=== PATIENT | male | born 1985 | race Caucasian/White ===

== ENCOUNTER 2023-06-08 19:52 | Emergency (ER) | payer OTHER, SELFPAY ==
[2023-06-08 19:54] VITALS: BP 139/98
--- NOTE | 2023-06-08 20:59 | ED.GENMED ---
History of Present Illness
General
Chief Complaint: Head Injury
Time Seen by Provider: 06/08/23 20:16
Travel History
Have you had any contact with someone who has COVID-19?: No
Do you have any symptoms of coronavirus? Fever > 100 degrees, chills, cough, shortness of breath, sore throat, loss of taste or smell, muscle aches, or headache?: No
History of Present Illness
History of Present Illness:
HPI: Patient presents due to head injury. He was working on a friend's car and was trying to loosen a wrench lost his balance and his head struck the car forcefully. Since that time has been having an ongoing headache. He has had waves of nausea.
He also reports some confusion.
EXAM:
GENERAL: Well appearing in no distress
CERVICAL SPINE: No midline c-spine tenderness with excellent AROM
HEAD: No evidence of craniofacial trauma
CHEST: No chest wall tenderness, normal heart sounds
LUNGS: Equal lung sounds, no respiratory distress
ABDOMEN: No abdominal tenderness, no peritoneal signs
EXTREMITIES: Normal active range of motion, no tenderness
NEURO: Excellent strength all extremities, appropriate mental status, normal speech/language
ED COURSE:
8:20 PM: I initially evaluated patient
NUMBER AND COMPLEXITY OF PROBLEMS ADDRESSED AT THE ENCOUNTER
� Chronic conditions affecting care: Anxiety, hypothyroid, OCD, bipolar disorder, ADHD
� Acute Exacerbation and/or Progression of Chronic Illness: This is an acute problem
� Differential Diagnosis includes: Concussion, minor head injury, intracranial hemorrhage
AMOUNT AND/OR COMPLEXITY OF DATA TO BE REVIEWED AND ANALYZED
� I performed an independent evaluation of and my interpretation is:
EKG:
CT: CAT scan of the brain shows no acute abnormality
X-rays:
Laboratory Studies:
Other:
� Review of other/old records: I reviewed blood work from 1 year ago that was unremarkable
� Clinical information was obtained by an independent historian: I spoke to the girlfriend at bedside
� Prescriptions/Medications Considered but not given:
� Further testing considered but not performed:
RISK OF COMPLICATIONS AND/OR MORBIDITY OR MORTALITY OF PATIENT MANAGEMENT
� Social determinants of health affecting care: Lives at home
� Discussion with other providers:
� Escalation of care including admission/observation vs risk of discharge considered: Favor more of a concussion however the patient has rather significant anxiety and is very concerned of a more serious etiology. He does have
ongoing headache, some confusion, and ongoing nausea. Will obtain CT for further evaluation as the mechanism of injury is somewhat concerning. CT brain negative on reassessment at 10:40 PM the patient has no new symptoms. Suspect minor concussion.
Past History
Past History
ED Past Medical History: Psychiatric
ED Past Surgical History: None
Social History
Tobacco: Smoker
Alcohol: None
Drug: None
Personal: Single
Living: other (With girlfriend)
Phy Exam
Physical Exam
Physical Exam:
See HPI
Course
Orders/Labs/Results
Orders:
Orders
06/08/23 20:22
CT Head W/o Iv Contrast Urgent
Comment:
Reason For Exam: head trauma, NICHOLSON persists, nausea, confusion
Vital Signs
Initial and Last Documented VS:
Initial Vital Signs
Temp Pulse Resp BP Pulse Ox
98.5 F 99 20 139/98 99
06/08/23 19:54 06/08/23 19:54 06/08/23 19:54 06/08/23 19:54 06/08/23 19:54
Last Documented Vital Signs
Temp Pulse Resp BP Pulse Ox
98.5 F 99 20 139/98 99
06/08/23 19:54 06/08/23 19:54 06/08/23 19:54 06/08/23 19:54 06/08/23 19:54
*Critical Care Note
Total Time (30-74mins, 75-104mins- exclusive of procedures): Not Applicable
ED Attending Note
-
Portions of this chart may have been created with voice recognition software.� Occasional wrong word or��sound alike� substitutions may have occurred due to the inherent limitations of voice recognition software.
Discharge Plan
Departure
Prescriptions:
No Action
escitalopram oxalate 5 MG tablet
5 mg PO DAILY
Referrals:
Blade Zuluaga MD [Family Provider] -
Interventions
Interventions:
*Risk Screen - Suicide Last Done: 06/08/23 19:54
*General Assessment Last Done: 06/08/23 19:54
*Neglect/Abuse Screening Last Done: 06/08/23 21:13
ED- Fall Risk Assessment Last Done: 06/08/23 21:12
ED- Neurological Assessment Last Done: 06/08/23 21:11
ED-Skin Assessment Last Done: 06/08/23 21:11
== END 2023-06-08 22:48 | disposition home or self-care (01) ==
LOC: EMR 19:52
PROVIDERS: EMERGENCY PHYSICIAN Emergency Medicine; FAMILY PHYSICIAN Family Medicine
DX: S06.0X0A Concussion without loss of consciousness, initial encounter (principal); W22.8XXA Striking against or struck by other objects, initial encounter; F17.200 Nicotine dependence, unspecified, uncomplicated; F41.9 Anxiety disorder, unspecified; F31.9 Bipolar disorder, unspecified; E03.9 Hypothyroidism, unspecified; F42.9 Obsessive-compulsive disorder, unspecified; F90.9 Attention-deficit hyperactivity disorder, unspecified type
CPT/HCPCS: 99284; 70450

== ENCOUNTER 2023-06-28 16:22 | Emergency (ER) | payer OTHER, SELFPAY ==
[2023-06-28 16:23] VITALS: BP 154/91
--- NOTE | 2023-06-28 18:45 | ED.GENMED ---
History of Present Illness
General
Chief Complaint: Swallowing Problem
Source: patient
Exam Limitations: none
Time Seen by Provider: 06/28/23 17:40
Nursing documentation reviewed up to this point in time: agreed with
Travel History
Have you had any contact with someone who has COVID-19?: No
Do you have any symptoms of coronavirus? Fever > 100 degrees, chills, cough, shortness of breath, sore throat, loss of taste or smell, muscle aches, or headache?: No
History of Present Illness
History of Present Illness:
pt is a 37 y/o M with h/o Hypothyroid
ADHD
was on meds for thyroid bu thas been euthyroid for a while
1 week sore throat, hoarseness voic,e mild occ cough, some feelings of gerd/regurgitstion of food or liquids
went to pcp and was sent here
recently had outpatient labs showing his tsh was normal but free t4 was slightly high. was told it probably was insignfiicant
pt says when he started haiving sore throat, he was wondering if maybe he had thyroiditis
he also has had chronic ROLAND posterior auricluar left ear x 5 years
in mar he saw derm. actually at the time he thought it was a cyst and it was much larger
when they cut into it, they realized it was a lymph node
it since has gone down in size but not away. it is not painful
no other lymph nodes
pt has had referral to ENT for this
today at the PCP office he had a soft tissue neck xray which was reported normal
Past History
Past History
ED Past Medical History: Psychiatric
ED Past Surgical History: None
Social History
Tobacco: Smoker
Alcohol: None
Drug: None
Personal: Single
Living: other (With girlfriend)
Review of Systems
Review of Systems
Allergies reviewed?: Yes
All Other Systems: Not applicable
Phy Exam
Physical Exam
Physical Exam:
GENERAL: Alert , in no apparent distress
TOLERATING SECRETIONS, NO REGURGITATION OF LIQUIDS
EYE: pupils equal and reactive
NECK: Supple
no anterior/posterior cerivcal ROLAND
pt has a left posterior auricular lymph node approx 1.5 cm nontender firm
ENT: o/p clr, mmm. mild erythema
mild voice hoarseness
CARDIAC: Regular rate and rhythm .
LUNGS: Clear breath sounds bilaterally, no acute respiratory distress, no wheezes/rales/rhonchi
ABDOMEN: Soft, without focal tenderness, no r/g, no cvat, normal bowel sounds
NEUROLOGICAL: Alert and oriented, no focal neuro deficits
SKIN: Warm and dry, skin intact.
MUSCULOSKELETAL: No edema, well perfused. neg sanna's sign
PSYCH: Normal and appropriate interaction.
Course
Orders/Labs/Results
Orders:
Orders
06/28/23 18:31
Mag Hydrox/Al Hydrox/Simeth [Maalox] 30 ml Phenobarb/Hyoscy/Atropine/Scop [] 10 ml PO NOW
06/28/23 18:32
CR Chest - 2 Views Urgent
Comment:
Reason For Exam: gerd symptoms
06/28/23 18:34
Mag Hydrox/Al Hydrox/Simeth [Maalox] 30 ml .ROUTE .STK-MED ONE
Phenobarb/Hyoscy/Atropine/Scop [] 10 ml .ROUTE .STK-MED ONE
06/28/23 18:36
Pantoprazole [Protonix IV] 40 mg IV NOW STA
06/28/23 18:54
Complete Blood Count/With Diff Urgent
Comprehensive Metabolic Panel Urgent
Monotest Urgent
TSH Reflex To Free T4 Urgent
Rapid Strep Group A Urgent
SHER Source: Throat/Pharynx
Specimen Description:
Date Specimen was Collected: 06/28/23
Time Specimen was Collected: 18:33
06/28/23 20:03
Dexamethasone Sod Phosphate [Decadron] 10 mg IV NOW STA
Abnormal Lab Results
06/28/23
18:54
MCV 78.1 L fL
(80.0-94.0)
Monoscreen Positive A
(Negative)
06/28/23 18:54
06/28/23 18:54
Vital Signs
Initial and Last Documented VS:
Initial Vital Signs
Temp Pulse Resp BP Pulse Ox
98.8 F 109 18 154/91 99
06/28/23 16:23 06/28/23 16:23 06/28/23 16:23 06/28/23 16:23 06/28/23 16:23
Last Documented Vital Signs
Temp Pulse Resp BP Pulse Ox
98.8 F 75 18 122/82 100
06/28/23 16:23 06/28/23 20:35 06/28/23 20:35 06/28/23 20:35 06/28/23 20:35
MDM/Problems Addressed
Differential Diagnosis Includes:
strep, gerd, mono, malignancy
MDM/Problems Addressed:
37 y/o M with sore throat, mild cough, fatigue, hoarse voice x 1 week
says he has had some vomiting/ which he describes as someimtes feeling like he regurgitates what he has eaten later on
but he doesn't feel food getting stuck
has h/o GERD but doesn't take meds
went to PCP and was sent in
also has ongoin lymph node swelling behind L ear but that is chronic
on exam mild hoarse voice, mild erythema throat
otherwise normal exam
no thyromegaly
no trouble breathing
no abd tenderness
labs reviewed and + mono
has never had mono before
cxr clear indep reviewed neg
symptoms likely related to mono but also could have GERD
given maalox and protonix and he felt better
d/c home after decardron
*Critical Care Note
Total Time (30-74mins, 75-104mins- exclusive of procedures): Not Applicable
ED Attending Note
-
Portions of this chart may have been created with voice recognition software.� Occasional wrong word or��sound alike� substitutions may have occurred due to the inherent limitations of voice recognition software.
Discharge Plan
Departure
Patient Disposition: Home (Routine Discharge)
Date of Disposition: 06/28/23
Time of Disposition: 20:35
Patient with high blood pressure during this ER visit?: No
Covid-19: Not Applicable
Discharge Problem:
Mononucleosis
Instructions: Acid Reflux and GERD in Adults (DC), Mononucleosis (DC)
Prescriptions:
New
pantoprazole [Protonix] 20 mg tablet,delayed release (DR/EC)
20 mg PO DAILY Qty: 20 0RF
No Action
escitalopram oxalate 5 MG tablet
5 mg PO DAILY
Referrals:
Oneida Read CRNP [Family Provider] - Follow up in 5-7 days
Activity Restrictions/Additional Instructions:
YOU TESTED POSITIVE FOR MONO WHICH IS A VIRUS
IT CAN CAUSE SORE THROAT, FEVER, FATIGUE.
THE FATIGUE CAN LAST A BIT.
MAKE SURE TO RETURN FOR ANY ABDOMIANL PAINS THAT ARE SEVERE ,OR ANY ABDOMINAL TRAUMA
AVOID CONTACT SPORTS FOR A FEW WEEKS
SEE YOUR DOCTOR BEFORE RETURNIN GTO CONTACT SPORTS
YOUR TSH WAS NORMAL
YOUR CHEST XRAY LOOKS CLERA
YOU COULD HAVE SOME ACID REFLUX
TAKE OVER THE COUNTER MAALOX 2-3 TIMES A DAY NEEDED BEFORE EATING
ALSO TRY PROTONIX 20 MG IN THE MORNING ON AN EMPTY STOMACH. DON'T EAT OR DRINK COFFEE FOR AT LEAST 1 HOUR AFTER THE PROTONIX
RETURN FOR WORSENING SYMPTOMS
Interventions
Interventions:
*Risk Screen - Suicide Last Done: 06/28/23 16:23
*General Assessment Last Done: 06/28/23 16:23
*Neglect/Abuse Screening Last Done: 06/28/23 16:23
ED- Fall Risk Assessment Last Done: 06/28/23 20:52
*ED COVID-19 Vaccine History Last Done: 06/28/23 16:23
*Nursing Disposition Last Done: 06/28/23 20:52
ED-EENT Assessment Last Done: 06/28/23 18:05
IK-Cgtsld-Qjbrlmeoty Assessment Last Done: 06/28/23 18:05
ED- Pulmonary Assessment Last Done: 06/28/23 18:05
ED- Neurological Assessment Last Done: 06/28/23 18:05
ED Swallowing Screen Last Done: 06/28/23 18:50
Discharge Date and Time
Discharge Date/Time: 06/28/23 20:53
[2023-06-28] MEDS: MAALOX 40 PO (18:59)
[2023-06-28] MEDS: PROTONIX IV 40 MG IV (18:59)
[2023-06-28 19:15] LABS: ALT (SGPT) 18 U/L (0-50); AST (SGOT) 33 U/L (17-59); Alkaline Phosphatase 57 U/L (38-126); Blood Urea Nitrogen 20 mg/dl (9-20); Calcium 10.1 mg/dl (8.4-10.2); Carbon Dioxide 24 mmol/L (22-30); Chloride 101 mmol/L (98-107); Glucose 86 mg/dl (70-99); Potassium 4.3 mmol/L (3.5-5.1); Sodium 137 mmol/L (135-145); Total Bilirubin 0.9 mg/dl (0.2-1.3); Total Protein 7.8 g/dl (6.3-8.2); eGFR > 60.00
[2023-06-28 19:16] LABS: % Basophils 0.5 % (0-2); % Eosinophils 1.1 % (0-6); % Immature Granulocytes 0.2 % (0-0.5); % Lymphocytes 28.7 % (20.5-51.1); % Monocytes 4.9 % (1.7-9.3); % Neutrophils 64.6 % (42.2-75.2); Absolute Eosinophils 0.1 10^3/uL (0-0.7); Absolute Lymphocytes 2.3 10^3/uL (1.2-3.4); Absolute Monocytes 0.4 10^3/uL (0.1-0.6); Absolute Neutrophils 5.2 10^3/uL (1.4-6.5); Hemoglobin 14.7 g/dL (13.0-18.0); Mean Corpuscular Hgb 27.3 pg (27.0-31.0); Mean Corpuscular Volume 78.1 fL (80.0-94.0); Mean Platelet Volume 9.7 fL (7.4-10.4); Nucleated Red Blood Cells % 0 % (-); Platelet Count 228 10^3/uL (130-400); Red Blood Cell Count 5.38 10^6/uL (4.70-6.10); Red Cell Dist. Width 13.2 % (11.5-14.5); White Blood Cell Count 8.1 10^3/uL (4.8-10.8)
[2023-06-28 19:21] LABS: Monotest Positive (Negative)
[2023-06-28 20:03] LABS: TSH Reflex To Free T4 2.26 uIU/ml (0.47-4.68)
[2023-06-28] MEDS: DECADRON 10 MG IV (20:31)
[2023-06-28 20:35] VITALS: BP 122/82
== END 2023-06-28 20:53 | disposition home or self-care (01) ==
LOC: EMR 16:22
PROVIDERS: Physician Assistant; EMERGENCY PHYSICIAN Emergency Medicine; FAMILY PHYSICIAN Registered Nurse
DX: B27.90 Infectious mononucleosis, unspecified without complication (principal); R07.0 Pain in throat; E03.9 Hypothyroidism, unspecified; K21.9 Gastro-esophageal reflux disease without esophagitis; F90.9 Attention-deficit hyperactivity disorder, unspecified type; F17.200 Nicotine dependence, unspecified, uncomplicated
CPT/HCPCS: 99283; 96374; 96375; 71046; 80053; 84443; 85025; 86308; 87070; 87880